=== PATIENT | male | born 1955 | race Caucasian/White ===

== ENCOUNTER 2018-09-19 11:43 | Outpatient (CLI) | payer BC ==
--- NOTE | 2018-09-19 15:18 | PET ---
EXAM: PET/CT HISTORY: Bilateral multiple lung nodules TECHNIQUE: PET scanning with CT attenuation correction was performed from the base of the brain to the proximal thighs following the intravenous administration of 10.6 millicuries [id number]. COMPARISON: None CORRELATION: CT chest dated 07/01/[address] abdomen and pelvis dated 09/15/2017 from the [facility]. FINDINGS: There is increased FDG localization in the upper lobe consolidative changes noted on the CT scan with SUVs of 8.8 in the right upper lobe and 10.4 in the left upper lobe. No betty hypermetabolism is seen in the neck, mediastinum, hilar regions or axillae. There are hypermetabolic subcentimeter lymph nodes in the abdomen with SUVs of 5.1 in the periportal lymph node and 6.8 mL lymph node at the level of the SMA on the left. No hypermetabolic liver, adrenal or skeletal lesions are seen. There is physiologic activity in the GI and tracts and the visualized portions of the brain. The CT scan used for attenuation correction demonstrates no evidence of pleural effusions or ascites. IMPRESSION: 1. Hypermetabolic areas of consolidation in the upper lobes bilaterally. Infection, inflammation vers us malignancy. 2. Small subcentimeter hypermetabolic abdominal lymph nodes.
== END 2018-09-19 11:44 | disposition home or self-care (01) ==
LOC: CAC 11:43
PROVIDERS: ATTEND Internal Medicine Pulmonary Disease
DX: R91.1 Solitary pulmonary nodule (principal)
CPT/HCPCS: 78815; 94060; 94727; 94729; A9552

== ENCOUNTER 2018-09-21 10:27 | Outpatient (CLI) | payer BC ==
--- NOTE | 2018-09-21 10:51 | RAD ---
Chest 2 views HISTORY: Dyspnea. Abnormal PET scan. COMPARISON: 10/17/2008. PET scan from 09/19/2008. FINDINGS: Cardiac silhouette is enlarged. Pulmonary vasculature upper limits of normal. Patchy areas of ill-defined parenchymal infiltrate scattered throughout each lobe correlate with the abnormalities on recent PET scan. Calcified mediastinal lymph nodes are apparent. No pleural fluid or pneumothorax. Mediastinum is midline with postoperative changes. IMPRESSION: Extensive ill-defined coarse interstitial and alveolar infiltrates throughout each lobe, correlating with abnormalities on recent PET scan. Cause is not apparent. Postoperative changes mediastinum.
== END 2018-09-21 10:28 | disposition home or self-care (01) ==
LOC: RAD 10:27
PROVIDERS: ATTEND Internal Medicine Pulmonary Disease
DX: R06.00 Dyspnea, unspecified (principal); R91.8 Other nonspecific abnormal finding of lung field; Z98.890 Other specified postprocedural states
CPT/HCPCS: 71046

== ENCOUNTER 2018-11-03 12:52 | Outpatient (CLI) | payer BC ==
--- NOTE | 2018-11-03 13:08 | RAD ---
Exam: CHEST 2 VIEWS: COMPARISON: 09/21/2018. HISTORY: Dyspnea. 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 Normal cardiac silhouette. There are dif fuse interstitial and alveolar opacities throughout the lung parenchyma, unchanged. Correlate for pulmonary fibrosis. Emphysematous changes in the upper lobes are suspected. Lungs are hyperinflated. No significant pleural fluid. No pneumothorax. IMPRESSION: Persistent opacities, interstitial and alveolar in location. Correlate for possible infiltrate superi mposed upon chronic change. Transcribed Date/Time: 11/03/2018 1:10 PM
== END 2018-11-03 12:53 | disposition home or self-care (01) ==
LOC: RAD 12:52
PROVIDERS: ATTEND Internal Medicine Pulmonary Disease
DX: R06.00 Dyspnea, unspecified (principal); R91.8 Other nonspecific abnormal finding of lung field
CPT/HCPCS: 71046

== ENCOUNTER 2020-09-02 08:05 | Outpatient (CLI) | payer BC | END 2020-09-02 08:06 | disposition home or self-care (01) | LOC: TBSIIMAG 08:05 | PROVIDERS: ATTEND Urology | DX: R97.20 Elevated prostate specific antigen [PSA] (principal) | CPT/HCPCS: 72197; 82565 ==

== ENCOUNTER 2022-12-05 11:28 | Inpatient (IN) | payer MEDICARE ==
[~2022-12-05 11:28] MED LIST: Bacitracin Zinc Ointment 30 gm TUBE ONE; Bupivacaine/Epinephrine 0.25% 30 ML VIAL ONE; fentaNYL PF 100 MCG/2 ML SYRINGE ONE
[2022-12-05] MEDS ORDERED: CEFAZOLIN 2 GM VIAL ONE (11:30)
[2022-12-05] MEDS ORDERED: Sodium Chloride 0.9% 100 ML ONE (11:30)
[2022-12-05 11:42] LABS: #Monocytes 1.2 thou/uL (0.11-0.59); #Neutrophils 11.5 thou/uL (1.40-6.50); %Basophils 0.3 % (0.0-1.0); %Eosinophils 0.2 % (0.0-10.0); %Lymphocytes 4.4 % (21.0-51.0); %Monocytes 8.6 % (0.0-10.0); Hemoglobin 14.1 g/dL (14.0-18.0); Mean Corpuscular HGB CONC 32.4 g/dL (32.0-36.0); Mean Corpuscular Hemoglobin 28.9 pg (27.0-31.0); Mean Corpuscular Volume 89.1 fl (78.0-98.0); Mean Platelet Volume 9.3 fL (7.4-10.4); Platelet Count 270 10x3/uL (130-400); RBC Distribution Width 14.1 % (11.5-14.5); Red Blood Cell (RBC) Count 4.88 mill/uL (4.70-6.10); White Blood Cell (WBC) Count 13.4 10x3/uL (4.8-10.8)
[2022-12-05 11:54] LABS: INR-International Normal Ratio 2.1; PTT 30.3 sec (22.9-36.1); Prothrombin Time 24.3 sec (12.0-14.7)
[2022-12-05] MEDS ORDERED: PROPOFOL 200 MG/20 ML VIAL ONE (11:59)
[2022-12-05] MEDS ORDERED: Dexamethasone 20 MG/5 ML VIAL ONE (11:59)
[2022-12-05] MEDS ORDERED: PHENYLEPHRINE-NS 100 MCG/ML 10 ML SYRINGE ONE (11:59)
[2022-12-05] MEDS ORDERED: Succinylcholine 200 MG/10 ml SYRINGE FS ONE (11:59)
[2022-12-05] MEDS ORDERED: Ondansetron PF 4 MG/2 ML Vial ONE (11:59)
[2022-12-05 12:04] LABS: Anion Gap 17 mmol/L (10-20); BUN (Urea Nitrogen) 17 mg/dL (8.4-25.7); Calc. Creatinine Clearance 0 mL/min (70-130); Calcium 9.8 mg/dL (7.8-10.44); Carbon Dioxide 21 mmol/L (23-31); Chloride 104 mmol/L (98-107); Estimated GFR 55; Glucose 106 mg/dL (80-115); Potassium 3.9 mmol/L (3.5-5.1); Sodium 138 mmol/L (136-145)
[2022-12-05] MEDS ORDERED: hydrALAZINE 20 MG/ML VIAL SLOW IVP PRN (12:22)
[2022-12-05] MEDS ORDERED: Acetaminophen 325 MG TAB PO PRN (12:22)
[2022-12-05] MEDS ORDERED: Bupivacaine 0.25% HCL 30 ML VIAL ONE (12:30)
[2022-12-05] MEDS ORDERED: fentaNYL PF 100 MCG/2 ML SYRINGE ONE (12:54)
[2022-12-05] MEDS ORDERED: ePHEDrine Sulfate 50 MG/10 ML VIAL ONE (13:25)
[2022-12-05] MEDS ORDERED: Promethazine HCl 25 MG/ML VIAL IM PRN (13:32)
[2022-12-05] MEDS ORDERED: Ondansetron HCl/PF 4 MG/2 ML Vial IVP PRN (13:32)
[2022-12-05] MEDS ORDERED: Morphine 2 MG/ML VIAL SLOW IVP PRN (13:37)
[2022-12-05] MEDS ORDERED: Mag-Al 1200 mg/1200 mg/30 ML UDCUP PO PRN (13:37)
[2022-12-05] MEDS ORDERED: Bisacodyl 10 MG SUPP PR PRN (13:37)
[2022-12-05] MEDS ORDERED: HYDROcodone/Acetaminophen 5/325 mg Tablet PO PRN ×2 (13:37)
[2022-12-05] MEDS ORDERED: Morphine 4 MG/ML VIAL SLOW IVP PRN (13:37)
[2022-12-05] MEDS ORDERED: fentaNYL 50 mcg/mL 1 mL Vial ONE ×2 (14:00→14:14)
[2022-12-05 16:35] VITALS: BMI 29.0
[2022-12-05] MEDS: Ramipril 5 MG CAP PO SCH (20:31)
[2022-12-05] MEDS: Metoprolol Tartrate 25 MG TAB PO SCH (20:31)
[2022-12-05] MEDS: Docusate 100 MG CAP PO SCH (20:32)
[2022-12-05] MEDS ORDERED: Ondansetron ODT 4 MG TAB PO PRN (20:59)
[2022-12-05] MEDS ORDERED: Ondansetron PF 4 MG/2 ML Vial IVP PRN (20:59)
[2022-12-05] MEDS: CEFAZOLIN 1 GM in Sodium Chloride 0.9% 100 ML IVPB SCH (21:00)
[2022-12-06] MEDS: CEFAZOLIN 1 GM in Sodium Chloride 0.9% 100 ML IVPB SCH ×3 (04:12→20:53)
[2022-12-06 04:34] LABS: #Monocytes 0.6 thou/uL (0.11-0.59); #Neutrophils 11.8 thou/uL (1.40-6.50); %Basophils 0.1 % (0.0-1.0); %Lymphocytes 3.8 % (21.0-51.0); %Monocytes 4.8 % (0.0-10.0); %Neutrophils 90.9 % (42.0-75.0); Hemoglobin 12.7 g/dL (14.0-18.0); Mean Corpuscular Hemoglobin 28.7 pg (27.0-31.0); Mean Corpuscular Volume 87.1 fl (78.0-98.0); Mean Platelet Volume 8.9 fL (7.4-10.4); Platelet Count 206 10x3/uL (130-400); Red Blood Cell (RBC) Count 4.42 mill/uL (4.70-6.10); White Blood Cell (WBC) Count 12.9 10x3/uL (4.8-10.8)
[2022-12-06 04:45] LABS: Prothrombin Time 23.5 sec (12.0-14.7)
[2022-12-06 05:06] LABS: Anion Gap 10 mmol/L (10-20); BUN (Urea Nitrogen) 17 mg/dL (8.4-25.7); Calc. Creatinine Clearance 91 mL/min (70-130); Calcium 9.1 mg/dL (7.8-10.44); Carbon Dioxide 25 mmol/L (23-31); Chloride 102 mmol/L (98-107); Estimated GFR 77; Glucose 134 mg/dL (80-115); Sodium 133 mmol/L (136-145)
[2022-12-06] MEDS: Escitalopram Oxalate 10 mg Tablet PO SCH (09:47)
[2022-12-06] MEDS: Docusate 100 MG CAP PO SCH ×2 (09:48→20:54)
[2022-12-06] MEDS: Metoprolol Tartrate 25 MG TAB PO SCH ×2 (09:48→20:54)
[2022-12-06] MEDS: Silodosin 4 MG CAP PO SCH (09:51)
[2022-12-06] MEDS: Ramipril 5 MG CAP PO SCH (20:54)
[2022-12-07 04:15] LABS: Hemoglobin 11.8 g/dL (14.0-18.0); Mean Corpuscular HGB CONC 32.7 g/dL (32.0-36.0); Mean Corpuscular Hemoglobin 28.9 pg (27.0-31.0); Mean Corpuscular Volume 88.3 fl (78.0-98.0); Mean Platelet Volume 9.5 fL (7.4-10.4); Platelet Count 202 10x3/uL (130-400); RBC Distribution Width 14.4 % (11.5-14.5); Red Blood Cell (RBC) Count 4.09 mill/uL (4.70-6.10); White Blood Cell (WBC) Count 11.2 10x3/uL (4.8-10.8)
[2022-12-07 04:38] LABS: INR-International Normal Ratio 1.7; Prothrombin Time 20.4 sec (12.0-14.7)
[2022-12-07] MEDS: CEFAZOLIN 1 GM in Sodium Chloride 0.9% 100 ML IVPB SCH ×2 (05:30→13:34)
[2022-12-07] MEDS ORDERED: Polyethylene Glycol 3350 17 GM Packet PO PRN (08:34)
[2022-12-07] MEDS: Escitalopram Oxalate 10 mg Tablet PO SCH (09:31)
[2022-12-07] MEDS: Metoprolol Tartrate 25 MG TAB PO SCH (09:32)
[2022-12-07] MEDS: Docusate 100 MG CAP PO SCH (09:33)
[2022-12-07] MEDS: Silodosin 4 MG CAP PO SCH (09:33)
[2022-12-07] MEDS ORDERED: Triple Antibiotic Oint 1 GM Packet TOP SCH (11:00)
[2022-12-07 16:33] VITALS: BP 138/72; TEMP 97.5
[2022-12-08] MEDS ORDERED: Triple Antibiotic Oint 1 GM Packet TOP SCH (09:00)
== END 2022-12-07 17:32 | disposition home or self-care (01) | DRG 712 ==
LOC: SDC 11:28 → 2NO 12:22
PROVIDERS: ADMIT Internal Medicine; ATTEND Hospitalist
PROC: 0VT90ZZ Resection of Right Testis, Open Approach (ICD-10-PCS; principal; 2022-12-05)
PROC: 0VBF0ZZ Excision of Right Spermatic Cord, Open Approach (ICD-10-PCS; 2022-12-05)
PROC: 0VB60ZZ Excision of Right Tunica Vaginalis, Open Approach (ICD-10-PCS; 2022-12-05)
DX: N44.00 Torsion of testis, unspecified (principal); N43.3 Hydrocele, unspecified; I48.0 Paroxysmal atrial fibrillation; Z95.4 Presence of other heart-valve replacement; Z79.899 Other long term (current) drug therapy; Z79.01 Long term (current) use of anticoagulants; J44.9 Chronic obstructive pulmonary disease, unspecified; Z98.890 Other specified postprocedural states; Z95.0 Presence of cardiac pacemaker; Z82.49 Family history of ischemic heart disease and other diseases of the circulatory system; N40.0 Benign prostatic hyperplasia without lower urinary tract symptoms; E78.00 Pure hypercholesterolemia, unspecified; K21.9 Gastro-esophageal reflux disease without esophagitis; N18.9 Chronic kidney disease, unspecified; Z98.41 Cataract extraction status, right eye; D63.1 Anemia in chronic kidney disease; F41.1 Generalized anxiety disorder; I13.10 Hypertensive heart and chronic kidney disease without heart failure, with stage 1 through stage 4 chronic kidney disease, or unspecified chronic kidney disease; I25.10 Atherosclerotic heart disease of native coronary artery without angina pectoris
CPT/HCPCS: 36415; 80048; 85025; 85027; 85610; 85730; 88305; J0690; J1100; J1650; J2405; J2704; J3010; J3490; Q0162; S0020

== ENCOUNTER 2023-01-26 12:34 | Outpatient (CLI) | payer MEDICARE ==
[2023-01-26 14:11] LABS: Bilirubin Neg (Negative); Blood, Urine Negative (Negative); Clarity Clear (Clear); Glucose, Urine (Dipstick) Normal (Negative); Ketone, Urine Negative (Negative); Leukocyte Negative (Negative); Nitrite Negative (Negative); Protein, Urine (Dipstick) Negative (Neg-Trace); Specific Gravity, Urine 1.005 (1.005-1.030); Urobilinogen Normal mg/dL (Less than 2)
[2023-01-26 14:12] LABS: Hematocrit 42.4 % (38.8-50.0); Hemoglobin 14.1 g/dL (13.5-17.5); Mean Corpuscular HGB CONC 33.3 g/dL (32.0-36.0); Mean Corpuscular Hemoglobin 28.9 pg (27.0-33.0); Mean Corpuscular Volume 86.9 fl (81.2-95.1); Mean Platelet Volume 9.8 fl (7.4-10.4); Platelet Count 269 10x3/uL (150-450); RBC Distribution Width 13.8 % (11.5-14.5); Red Blood Cell (RBC) Count 4.88 10x6/uL (4.32-5.72); White Blood Cell (WBC) Count 8.4 10x3/uL (3.5-10.5)
[2023-01-26 14:30] LABS: INR-International Normal Ratio 2.2; PTT 36.1 sec (22.0-33.0); Prothrombin Time 23.1 sec (9.5-12.1)
[2023-01-26 14:34] LABS: Anion Gap 16 mmol/L (10-20); BUN (Urea Nitrogen) 18 mg/dL (8.4-25.7); Calc. Creatinine Clearance 0 mL/min (70-130); Calcium 9.1 mg/dL (7.8-10.44); Carbon Dioxide 24 mmol/L (23-31); Chloride 102 mmol/L (98-107); Estimated GFR 58; Glucose 102 mg/dL (80-115); Potassium 3.6 mmol/L (3.5-5.1); Sodium 138 mmol/L (136-145)
[2023-01-26 14:46] LABS: Bacteria/HPF Rare-Few HPF (None Seen); RBC/HPF 0-3 HPF (0-3); Squamous Epithelial 0-3 HPF (0-3); WBC/HPF 0-3 HPF (0-3)
== END 2023-01-26 12:35 | disposition home or self-care (01) ==
LOC: LABBT 12:34
PROVIDERS: ATTEND Urology
DX: Z01.818 Encounter for other preprocedural examination (principal); Z12.5 Encounter for screening for malignant neoplasm of prostate; I12.9 Hypertensive chronic kidney disease with stage 1 through stage 4 chronic kidney disease, or unspecified chronic kidney disease; R97.20 Elevated prostate specific antigen [PSA]; K40.91 Unilateral inguinal hernia, without obstruction or gangrene, recurrent; N40.1 Benign prostatic hyperplasia with lower urinary tract symptoms; R39.11 Hesitancy of micturition; I48.0 Paroxysmal atrial fibrillation; N44.00 Torsion of testis, unspecified; N18.9 Chronic kidney disease, unspecified; Z87.891 Personal history of nicotine dependence; Z95.2 Presence of prosthetic heart valve; Z79.01 Long term (current) use of anticoagulants; Z90.79 Acquired absence of other genital organ(s)
CPT/HCPCS: 71046; 80048; 81001; 85027; 85610; 85730; 87086; 93005; 93010

== ENCOUNTER 2023-02-09 05:38 | Day surgery (SDC) | payer MEDICARE ==
[2023-01-26 13:55] VITALS: BMI 28.0
[2023-02-09] MEDS ORDERED: cefTRIAXone (ROCEPHIN) 2 GM VIAL ONE (06:17)
[2023-02-09] MEDS ORDERED: Lidocaine 1% MPF 2 ML VIAL ONE (06:17)
[2023-02-09] MEDS ORDERED: Sodium Chloride 0.9% 100 ML ONE (06:17)
[2023-02-09] MEDS ORDERED: LevoFLOXacin 500 mg/D5W 100 ML BAG ONE (06:18)
[2023-02-09 06:35] LABS: INR-International Normal Ratio 0.9; PTT 24.1 sec (22.9-36.1); Prothrombin Time 12.6 sec (12.0-14.7)
[2023-02-09] MEDS ORDERED: Ondansetron PF 4 MG/2 ML Vial ONE (07:50)
[2023-02-09] MEDS ORDERED: Lidocaine 1% PF 5 ML VIAL ONE (07:50)
[2023-02-09] MEDS ORDERED: PROPOFOL 200 MG/20 ML VIAL ONE (07:50)
[2023-02-09] MEDS ORDERED: Dexamethasone 20 MG/5 ML VIAL ONE (07:50)
[2023-02-09] MEDS ORDERED: HYDROcodone/Acetaminophen 5/325 mg Tablet ONE (11:06)
[2023-02-09] MEDS ORDERED: Phenazopyridine HCl 100 MG TAB ONE (11:33)
== END 2023-02-09 11:45 | disposition home or self-care (01) ==
LOC: SDC 05:38
PROVIDERS: ATTEND Urology
PROC: 0VB03ZX Excision of Prostate, Percutaneous Approach, Diagnostic (ICD-10-PCS; principal; 2023-02-09)
DX: C61 Malignant neoplasm of prostate (principal); N40.1 Benign prostatic hyperplasia with lower urinary tract symptoms; R39.11 Hesitancy of micturition; I12.9 Hypertensive chronic kidney disease with stage 1 through stage 4 chronic kidney disease, or unspecified chronic kidney disease; N18.30 Chronic kidney disease, stage 3 unspecified; D64.9 Anemia, unspecified; I48.0 Paroxysmal atrial fibrillation; K21.9 Gastro-esophageal reflux disease without esophagitis; K40.91 Unilateral inguinal hernia, without obstruction or gangrene, recurrent; N44.00 Torsion of testis, unspecified; Z79.899 Other long term (current) drug therapy; Z79.01 Long term (current) use of anticoagulants; Z88.8 Allergy status to other drugs, medicaments and biological substances; Z95.0 Presence of cardiac pacemaker; Z86.16 Personal history of COVID-19; Z87.891 Personal history of nicotine dependence; Z95.2 Presence of prosthetic heart valve
CPT/HCPCS: 85610; 85730; 88305; G0416; J0696; J1100; J1956; J2405; J2704; J3490

== ENCOUNTER 2023-03-29 07:38 | Outpatient (CLI) | payer MEDICARE | END 2023-03-29 07:39 | disposition home or self-care (01) | LOC: CT 07:38 | PROVIDERS: ATTEND Urology | DX: C61 Malignant neoplasm of prostate (principal) | CPT/HCPCS: 74178; 78306; 82565; A9503 ==